=== PATIENT | female | born 1985 | race Caucasian/White ===

== ENCOUNTER 2020-08-11 11:04 | Outpatient (CLI) | payer OTHER ==
[2020-08-11 12:25] LABS: #Basophils 0.2 thou/uL (0.0-0.2); #Eosinphils 0.3 thou/uL (0.0-0.7); #Lymphocytes 2.4 thou/uL (1.20-3.40); #Monocytes 0.5 thou/uL (0.11-0.59); #Neutrophils 5.4 thou/uL (1.40-6.50); %Basophils 1.9 % (0.0-1.0); %Eosinophils 3.7 % (0.0-10.0); %Lymphocytes 27.6 % (21.0-51.0); %Monocytes 5.2 % (0.0-10.0); %Neutrophils 61.5 % (42.0-75.0); Mean Corpuscular HGB CONC 33.1 g/dL (32.0-36.0); Mean Corpuscular Hemoglobin 32.1 pg (27.0-31.0); Mean Corpuscular Volume 96.9 fL (78.0-98.0); Mean Platelet Volume 6.3 fL (7.4-10.4); Platelet Count 294 thou/uL (130-400); RBC Distribution Width 11.4 % (11.5-14.5); Red Blood Cell (RBC) Count 4.69 mill/uL (4.20-5.40); White Blood Cell (WBC) Count 8.8 thou/uL (4.8-10.8)
[2020-08-11 12:40] LABS: ALT (SGPT) 17 U/L (8-55); AST (SGOT) 17 U/L (5-34); Albumin 4.5 g/dL (3.5-5.0); Alkaline Phosphatase 68 U/L (40-110); Anion Gap 15 mmol/L (10-20); BUN (Urea Nitrogen) 8 mg/dL (7.0-18.7); Bilirubin, Total 0.4 mg/dL (0.2-1.2); Calc. Creatinine Clearance 0 mL/min (70-130); Calcium 9.2 mg/dL (7.8-10.44); Carbon Dioxide 27 mmol/L (22-29); Cardiac Risk 2.8 (Less than 4.5); Chloride 103 mmol/L (98-107); Cholesterol 133 mg/dl (< 200 Desired); Globulin 2.6 g/dL (2.4-3.5); Glucose 137 mg/dL (70-105); HDL Cholesterol 48 mg/dL (>60 Neg Risk); LDL Cholesterol, Calculated 76 mg/dL; Potassium 4.3 mmol/L (3.5-5.1); Protein, Total 7.1 g/dL (6.0-8.3); Sodium 141 mmol/L (136-145); Triglycerides 44 mg/dL (Less than 150)
== END 2020-08-11 11:05 | disposition home or self-care (01) ==
LOC: BURLAB 11:04
PROVIDERS: ATTEND Physician Assistant
DX: Z01.419 Encounter for gynecological examination (general) (routine) without abnormal findings (principal)
CPT/HCPCS: 36415; 80050; 80061

== ENCOUNTER 2021-01-09 13:45 | Emergency (ER) | payer BC, OTHER | END 2021-01-09 14:18 | disposition home or self-care (01) | LOC: BURERS 13:45 | DX: S92.314A Nondisplaced fracture of first metatarsal bone, right foot, initial encounter for closed fracture (principal); E10.9 Type 1 diabetes mellitus without complications; W19.XXXA Unspecified fall, initial encounter ==

== ENCOUNTER 2023-12-04 18:51 | Emergency (ER) | payer OTHER | END 2023-12-04 19:47 | disposition home or self-care (01) | LOC: BURERS 18:51 | DX: S29.011A Strain of muscle and tendon of front wall of thorax, initial encounter (principal); E10.9 Type 1 diabetes mellitus without complications; X58.XXXA Exposure to other specified factors, initial encounter | CPT/HCPCS: 93005 ==